=== PATIENT | female | born 1955 | race American Indian/Alaskan Native ===

== ENCOUNTER 2017-06-29 13:23 | Inpatient (IN) | payer MEDICARE ==
[2017-06-29 15:15] LABS: Basophils % (Auto) 0.4 % (0.0-1.8); Eosinophils % (Auto) 5.5 % (0.0-4.3); Hematocrit 34.9 % (30.3-42.9); Hemoglobin 11.4 gm/dl (10.1-14.3); Mean Corpuscular HGB Conc 33 % (30-34); Mean Corpuscular Hemoglobin 29 pg (28-32); Mean Corpuscular Volume 89 fl (79-97); Platelet Count 289 K/mm3 (140-440); Red Blood Count 3.94 M/mm3 (3.65-5.03); Red Cell Distribution Width 14.4 % (13.2-15.2)
[2017-06-29 15:35] LABS: Anion Gap 16 mmol/L; Blood Urea Nitrogen 10 mg/dL (7-17); Calcium 9.6 mg/dL (8.4-10.2); Carbon Dioxide 30 mmol/L (22-30); Chloride 101.7 mmol/L (98-107); Glucose 88 mg/dL (65-100); Potassium 3.9 mmol/L (3.6-5.0); Sodium 144 mmol/L (137-145)
--- NOTE | 2017-06-29 15:43 | Emergency Department Report ---
HPI - General Chief Complaint: Chest Pain Time Seen by Provider: 06/29/17 14:54 - HPI HPI: This is a 62-year-old Afro-Spanish female presents to the emergency department from [facility] by EMS with complaint of left-sided chest pain has been going on since last night. It is nonradiating and she denies any nausea, vomiting, fever or diaphoresis. She has some occasional shortness of breath. She did not take anything for symptoms prior to presentation. Prior to today she did not have a primary care physician and therefore has not had her medications. She has a history of hypertension, coronary artery disease and ID. She was just started on Norvasc and hydralazine today but has not taken his medications yet. She is a former smoker. No recent travel or sick contacts at home. ED Past Medical Hx - Past Medical History Previous Medical History?: Yes Hx Hypertension: Yes (non compliant with meds) Hx Heart Attack/AMI: Yes - Social History Smoking Status: Never Smoker Substance Use Type: None - Medications Home Medications: Home Medications Medication Instructions Recorded Confirmed Last Taken Type Aspirin [Aspirin TAB] 325 mg PO QDAY 06/29/17 06/29/17 Unknown History amLODIPine [Norvasc] 10 mg PO DAILY 06/29/17 06/29/17 Unknown History hydrALAZINE [Apresoline] 25 mg PO BID 06/29/17 06/29/17 Unknown History ED Review of Systems ROS: Stated complaint: CHEST PAIN Other details as noted in HPI Comment: All other systems reviewed and negative Constitutional: denies: chills, fever Eyes: denies: eye pain, eye discharge, vision change ENT: denies: ear pain, throat pain Respiratory: shortness of breath. denies: cough Cardiovascular: chest pain. denies: palpitations Gastrointestinal: denies: abdominal pain, nausea, diarrhea Genitourinary: denies: urgency, dysuria, discharge Musculoskeletal: denies: back pain, joint swelling, arthralgia Skin: denies: rash, lesions Neurological: denies: headache, weakness, paresthesias Physical Exam - Physical Exam Vital Signs: Vital Signs 06/29/17 06/29/17 15:08 15:10 Pulse Rate 69 Respiratory 16 16 Rate Blood Pressure 180/84 [Right] Physical Exam: GENERAL: The patient is well-developed well-nourished. HEENT: Normocephalic. Atraumatic. Extraocular motions are intact. Patient has moist mucous membranes. Pupils equal reactive to light bilaterally. NECK: Supple. Trachea is midline. CHEST/LUNGS: Clear to auscultation. There is no respiratory distress noted. Chest pain is not reproducible to palpation of chest wall. HEART/CARDIOVASCULAR: Regular. There is no tachycardia. There is no gallop rub or murmur. ABDOMEN: Abdomen is soft, nontender. Patient has normal bowel sounds. There is no abdominal distention. SKIN: Skin is warm and dry. NEURO: The patient is awake, alert, and oriented. The patient is cooperative. The patient has no focal neurologic deficits. The patient has normal speech. MUSCULOSKELETAL: There is no tenderness or deformity. There is no limitation range of motion. There is no evidence of acute injury. ED Course Vital Signs 06/29/17 06/29/17 15:08 15:10 Pulse Rate 69 Respiratory 16 16 Rate Blood Pressure 180/84 [Right] ED Medical Decision Making - Lab Data Result diagrams: 06/29/17 14:51 06/29/17 14:51 - EKG Data -: EKG Interpreted by Me EKG shows normal: sinus rhythm, axis (LAD), intervals, QRS complexes (RBBB), ST- T waves Rate: normal - EKG Data When compared to previous EKG there are: previous EKG unavailable Interpretation: other (Sinus, RBBB) - Radiology Data Radiology results: report reviewed, image reviewed interpreted by me: Chest x-ray did not show any acute process. Heart is normal shape and size. No effusions. No pneumothorax. No signs of pneumonia seen. EXAM: CT ANGIO CHEST HISTORY: CP, elevated dimer TECHNIQUE: CTA of chest with IV contrast. Coronal and sagittal and MIP reconstructed images provided. PRIORS: None currently available. FINDINGS: Subpleural nodule right upper lobe series 2:11 measures 5.7 mm. Pleural-based nodule right lower lobe series 295 measures 4.7 mm. Left upper lung nodule series 2:101 measures 4.5 mm. Interstitial opacities with airspace opacities in the apical to basal gradient identified. No distinct consolidation noted. Findings could be related to pulmonary vascular congestion with edema. Differential diagnosis includes cellular interstitial pneumonitis or interstitial and airspace pneumonia which can be seen with atypical pneumonia or viral pneumonia. No pneumothorax. No endobronchial lesion. No significant effusion. Prominent bilateral axillary lymph nodes identified. One of the larger lymph nodes on the right measures 9.9 x 6.1 mm. One of the larger lymph nodes on the left measure 16.5 x 7.9 mm. Prominent right hilar lymph node measures 12.9 mm. No enlarged left hilar lymph nodes identified. No mediastinal mass or adenopathy noted. Images of the esophagus are unremarkable. No thoracic aortic aneurysm or dissection. Mild atherosclerotic disease. Main pulmonary artery is unremarkable. No pulmonary embolus. Heart size is borderline normal. No pericardial effusion. No suspicious osseous lesions on this limited examination of the skeleton. Metastatic disease better evaluated with bone scan. Degenerative changes are present in the spine. IMPRESSION: No pulmonary embolus. No aortic aneurysm. No dissection. Possible bilateral pulmonary nodules. Nodule size T gt; 4-6 mm: Low risk patients - follow-up at 12 months and if no change, no further imaging needed. High risk patients - initial follow-up CT at 6-12 months and then at 18-24 months if no change. Interstitial and airspace opacities in both lungs more notable in both basal regions may represent pulmonary vascular congestion with pulmonary edema, interstitial pneumonitis, or pneumonia. Nonspecific prominent bilateral axillary lymph nodes. Possibly reactive. Prominent right hilar lymph node may also be reactive. - Medical Decision Making 62-year-old female presents with left-sided chest pain since last night. She also presents with elevated blood pressure but has not been on medications for a while. EKG shows a right bundle branch block but no ST elevation ID. First troponin is negative. Elevated but equivocal d-dimer so CT angiography was done. No pulmonary embolism but pulmonary nodules are seen. She has a history of coronary artery disease, ID with elevated blood pressure and has not had a stress test or full cardiac workup recently. For these reasons the patient will be admitted to hospital for further evaluation and treatment. The patient has been presented to the current admitting hospitalist, Dr. Boudreaux, who will either do the history and physical or will pass along the admission to the incoming admitting hospitalist. - Differential Diagnosis ID, PE, costochondritis, pneumonia, CHF Critical Care Time: No Critical care attestation.: If time is entered above; I have spent that time in minutes in the direct care of this critically ill patient, excluding procedure time. ED Disposition Clinical Impression: Pulmonary nodules Chest pain Qualifiers: Chest pain type: unspecified Qualified Code(s): R07.9 - Chest pain, unspecified Hypertension Qualifiers: Hypertension type: essential hypertension Qualified Code(s): I10 - Essential ( primary) hypertension Disposition: 09 OP ADMIT IP TO THIS HOSP Is pt being admited?: Yes Condition: Stable Instructions: Chest Pain (ED), Hypertension (ED) Referrals: PRIMARY CARE, [Primary Care Provider] - 3-5 Days Time of Disposition: 17:40
[2017-06-29] MEDS ORDERED: NACL ONE (15:46)
[2017-06-29 15:53] LABS: Bilirubin,Urine NEG (Negative); Blood,Urine NEG (Negative); Ketones,Urine NEG (Negative); Leukocyte Esterase,Urine NEG (Negative); Nitrite,Urine NEG (Negative); Protein,Urine <15 mg/dL mg/dL (Negative); Urobilinogen,Urine < 2.0 mg/dL (<2.0); WBC,Urine < 1.0 /HPF (0.0-6.0)
--- NOTE | 2017-06-29 16:56 | Admit Criteria Form ---
Admission Criteria Documentation: CHEST PAIN Clinical Indications for Admission to Inpatient Care (Place 'X' for any and all applicable criteria): Admission is indicated for chest pain and ANY ONE of the following(1)(2)(3)(4)(5 ): [ ]I. Angina with acute coronary syndrome (Also use Myocardial Infarction or Angina guideline) [ ]II. Hemodynamic instability [ ]III. Angina needing acute intervention as indicated by ALL of the following( 11)(12): [ ]a) Unstable angina is present as indicated by angina that is ANY ONE of the following: [ ]i) New onset [ ]ii) Nocturnal [ ]iii) Prolonged at rest [ ]iv) Progressive [ ]b) Angina warrants acute intervention as indicated by ANY ONE of the following: [ ]i) Recurrent angina (e.g, not responding as previously to treatment) [ ]ii) Angina at rest or with low-level activities despite initial medical therapy [ ]iii) New or presumably new ST-segment depression on ECG [ ]iv) Signs or symptoms of heart failure (eg, dyspnea, pulmonary edema) [ ]v) New or worsening mitral regurgitation [ ]vi) Hemodynamic instability [ ]vii) Dangerous arrhythmia (eg, sustained ventricular tachycardia) [ ]viii) History of percutaneous coronary intervention within 6 months [ ]ix) History of coronary artery bypass graft surgery [ ]x) WESLEY risk score of 2 or greater[A] [ ]xi) History of Diabetes(14) [ ]xii) High-risk cardiac ischemia findings on noninvasive testing (e.g, echocardiogram, treadmill testing, nuclear scan) [ ]xiii) Chronic renal insufficiency (ie, estimated GFR less than 60 mL/min/1.732m) [ ]xiv) Left ventricular ejection fraction less than 40% [ ]IV. Evidence of DE (eg, cardiac biomarkers positive, ST-segment elevation on ECG) also use Myocardial Infarction Criteria Form. [ ]V. Pulmonary edema [ ]. Respiratory distress [ ]VII. Chest pain indicative of serious diagnosis other than coronary artery disease (eg, aortic dissection) [ ]VIII. Contraindications and/or Inappropriate clinical situations for Observational Care in patients with Chest Pain, when ANY ONE of the following is required: [ ]a) Patient with risk factor for pulmonary embolism, acute coronary syndrome and myocardial infarction (18) [ ]b) Patient with Pulmonary embolism require an average LOS of 4.3 days, therefore emergency department observation management is inappropriate 18,23 [ ]c) Painful condition/s in the elderly, have the highest rate of recidivism after emergency department observation management (10.8%) 20,21,22 [ ]d) Elevated cardiac biomarker requires intensive and exhaustive care (19) [ X]IX. General contraindications and/or Inappropriate clinical situations for Observational Care in patients with Chest Pain, when ANY ONE of the following is required: [ X]a) Prediction of prolongation of LOS based on ANY ONE of the following may be considered as a contraindication for observational care 2, 3, 4, 5, 6, 7, 8, 9, 10, 11 [ ]i) Age > 65 yrs. [X ]ii) Patient arriving by ambulance [ ]iii) Patient with high acuity [ ]iv) Patient requiring vital sign monitoring [ ]v) Patient on IV medication [X ]b) Systolic blood pressures 180mmHg 3,12 [ ]c) Patient with altered mental status including delirium and other alteration of consciousness, (3) [ ]d) Patient whose discharge disposition will be to a nursing home home or rehabilitation home should not be managed in Emergency Department Observation Unit. CMS rule requires 3 days hospital stay before such placement. 3,13 [ ]e) Patient with failure to thrive due to broad array of etiologies 3,16,17 [ ]f) Inability to ambulate 3,14 Extended stay beyond goal length of stay may be needed for (1)(28): [ ]a) Specific condition diagnosed after evaluation (eg, pulmonary embolism, aortic dissection) [ ]b) Unstable angina [ ]c) Continued suspicion of acute coronary syndrome with inability to complete needed cardiac evaluation (eg, patient clinically unable to undergo stress testing) [ ]d) Myocardial infarction (Contents from ANGINA and CHEST PAIN clinical indications for admission to inpatient care have been integrated in this form) The original [email or web address] content created by [email or web address] has been revised. The portions of the content which have been revised are identified through the use of italic text or in bold, and [employer] [facility] [employer] has neither reviewed nor approved the modified material. All other unmodified content is copyright [email or web address]. Please see references footnoted in the original [employer] [facility] [employer] edition 2016 Admission Criteria Met: Yes
--- NOTE | 2017-06-29 17:10 | Cat Scan Report ---
FINAL REPORT EXAM: CT ANGIO CHEST HISTORY: CP, elevated dimer TECHNIQUE: CTA of chest with IV contrast. Coronal and sagittal and MIP reconstructed images provided. PRIORS: None currently available. FINDINGS: Subpleural nodule right upper lobe series 2:11 measures 5.7 mm. Pleural-based nodule right lower lobe series 295 measures 4.7 mm. Left upper lung nodule series 2:101 measures 4.5 mm. Interstitial opacities with airspace opacities in the apical to basal gradient identified. No distinct consolidation noted. Findings could be related to pulmonary vascular congestion with edema. Differential diagnosis includes cellular interstitial pneumonitis or interstitial and airspace pneumonia which can be seen with atypical pneumonia or viral pneumonia. No pneumothorax. No endobronchial lesion. No significant effusion. Prominent bilateral axillary lymph nodes identified. One of the larger lymph nodes on the right measures 9.9 x 6.1 mm. One of the larger lymph nodes on the left measure 16.5 x 7.9 mm. Prominent right hilar lymph node measures 12.9 mm. No enlarged left hilar lymph nodes identified. No mediastinal mass or adenopathy noted. Images of the esophagus are unremarkable. No thoracic aortic aneurysm or dissection. Mild atherosclerotic disease. Main pulmonary artery is unremarkable. No pulmonary embolus. Heart size is borderline normal. No pericardial effusion. No suspicious osseous lesions on this limited examination of the skeleton. Metastatic disease better evaluated with bone scan. Degenerative changes are present in the spine. IMPRESSION: No pulmonary embolus. No aortic aneurysm. No dissection. Possible bilateral pulmonary nodules. Nodule size \T\gt; 4-6 mm: Low risk patients - follow-up at 12 months and if no change, no further imaging needed. High risk patients - initial follow-up CT at 6-12 months and then at 18-24 months if no change. Interstitial and airspace opacities in both lungs more notable in both basal regions may represent pulmonary vascular congestion with pulmonary edema, interstitial pneumonitis, or pneumonia. Nonspecific prominent bilateral axillary lymph nodes. Possibly reactive. Prominent right hilar lymph node may also be reactive.
[2017-06-29] MEDS ORDERED: BABY ASPIRIN PO ONE (17:32)
[2017-06-29] MEDS ORDERED: NORMODYNE IV ONE (17:33)
[2017-06-29] MEDS ORDERED: BABY ASPIRIN PO STA (20:19)
[2017-06-29] MEDS ORDERED: MORPHINE IV PRN (20:19)
[2017-06-29] MEDS ORDERED: SODIUM CHLORIDE FLUSH SYRINGE 10 ML IV PRN (20:19)
--- NOTE | 2017-06-29 20:39 | History and Physical Report ---
History of Present Illness Date of examination: 06/29/17 Date of admission: 06/29/17 Chief complaint: chest pain, HTN, Pulm Nodules History of present illness: Patient is a 62-year-old lady who has a history of carotid disease and acute infection woke from sleep this morning with a dull left-sided chest pain. Moderate to severe in intensity. Intermittent. Nonradiating, associated with shortness of breath and diaphoresis. Continue emergency department where a chest x-ray was unremarkable. CT scan of the chest showed multiple pulmonary nodules for which a follow-up CT scan was recommended in 6 months and 12 months. Blood pressure was found to be elevated to 180s emergency department. Initial set of cardiac enzymes were normal. Patient was commenced on oxygen nitroglycerin aspirin. Patient denies any orthopnea proximal nocturnal dyspnea. No fever no nausea no vomiting. Admission was therefore requested Past History Past Medical History: hypertension Past Surgical History: No surgical history Social history: denies: smoking, alcohol abuse, prescription drug abuse Family history: other (breast cancer in her mother) Medications and Allergies Allergies Allergy/AdvReac Type Severity Reaction Status Date / Time No Known Allergies Allergy Unverified 06/29/17 14:12 Home Medications Medication Instructions Recorded Confirmed Last Taken Type Aspirin [Aspirin TAB] 325 mg PO QDAY 06/29/17 06/29/17 Unknown History amLODIPine [Norvasc] 10 mg PO DAILY 06/29/17 06/29/17 Unknown History hydrALAZINE [Apresoline] 25 mg PO BID 06/29/17 06/29/17 Unknown History Active Meds: Active Medications Amlodipine Besylate (Norvasc) 10 mg PO DAILY [facility] Aspirin (Aspirin) 325 mg PO QDAY [facility] Aspirin (Baby Aspirin) 324 mg PO QDAC STA Stop: 06/29/17 20:20 Atorvastatin Calcium (Lipitor) 20 mg PO QHS [facility] Hydralazine HCl (Apresoline) 25 mg PO BID [facility] Morphine Sulfate (Morphine) 2 mg IV Q4H PRN PRN Reason: Chest Pain Nitroglycerin (Nitro-Bid 2%) 1 inch TP BIDNTG CANDELARIO PRN Reason: Protocol Sodium Chloride (Sodium Chloride Flush Syringe 10 Ml) 10 ml IV PRN PRN PRN Reason: LINE FLUSH Review of systems Constitutional: Well Nouridhed and Well developed. Head: NC/ AT Eyes: Denies any visual impairments. No discharge from the eyes Nose: Denies any rhinorrhea or epistaxis Throats: Denies any post nasal drainage. Ears: Denies any hearing deficits Cardiovascular system: Has chest pain, shortness of breath, no orthopnea, paroxysmal nocturnal dyspnea, or palpitation. Respiratory system: Denies any cough, difficulty breathing, wheezing, pleuritic chest pain, Gastrointestinal system: Denies any abdominal pain, nausea vomiting, hematemesis or melena. Neurological system: Denies any headache, slurred speech, facial droop, lateralizing weakness Genitalia system: Denies any dysuria, urinary frequency or urgency, urethral discharge Skin: No rashes, hyperpigmented spots. Hematological: Denies any cervical tenderness hemorrhages or petechia. Immunological: Denies any multiple septic spots, Lymphatic: Denies any generalized lymphadenopathy. Endocrine: Denies any polyuria, polydipsia, polyphagia. No heat or cold intolerance. Musculoskeletal system: No joint pain or swelling. Psych: No visual, tactile, auditory or hallucination Exam - Constitutional Vitals: Temp Pulse Resp BP Pulse Ox 98.2 F 86 19 189/93 98 06/29/17 17:40 06/29/17 19:05 06/29/17 19:05 06/29/17 19:05 06/29/17 19:05 General appearance: Present: no acute distress, well-nourished - EENT Eyes: Present: PERRL - Neck Neck: Present: supple, normal ROM - Respiratory Respiratory effort: normal Respiratory: bilateral: CTA - Cardiovascular Heart Sounds: Present: S1 & S2. Absent: rub, click - Extremities Extremities: pulses symmetrical, No edema Peripheral Pulses: within normal limits - Abdominal General gastrointestinal: Present: soft, non-tender, non-distended, normal bowel sounds - Integumentary Integumentary: Present: clear, warm, dry - Musculoskeletal Musculoskeletal: gait normal, strength equal bilaterally - Psychiatric Psychiatric: appropriate mood/affect, intact judgment & insight - Neurologic Neurologic: CNII-XII intact, moves all extremities Results - Labs CBC & Chem 7: 06/29/17 14:51 06/29/17 14:51 Labs: Abnormal lab results 06/29/17 06/29/17 06/29/17 Range/Units 14:51 14:51 15:10 WBC 4.0 L (4.5-11.0) K/mm3 [place] % (Auto) 8.2 H (0.0-7.3) % Eos % (Auto) 5.5 H (0.0-4.3) % Lymph # 1.1 L (1.2-5.4) K/mm3 D-Dimer 485.25 H (0-234) ng/mlDDU Creatinine 0.5 L (0.7-1.2) mg/dL Assessment and Plan - Chest pain- atypical - Hypertension - Pulmonary nodule - Elevated d-dimer Admit patient to telemetry Serial cardiac enzymes, oxygen nitroglycerin aspirin and morphine, metoprolol. Stress thallium if second set of cardiac enzymes are normal Optimize blood pressure control Follow pulmonary nodules with CT scan on outpatient basis with patient's primary care physician as recommended by radiologist Pulmonary consult for pulmonary nodules DVT prophylaxis with Lovenox and GI with Pepcid
[2017-06-29 21:00] LABS: INR 0.95 (0.87-1.13)
[2017-06-29] MEDS ORDERED: NORVASC ONE (21:51)
[2017-06-29] MEDS: NORVASC PO SCH (21:54)
[2017-06-29] MEDS: APRESOLINE PO SCH (22:34)
[2017-06-30] MEDS ORDERED: NITRO-BID 2% TP SCH (06:00)
--- NOTE | 2017-06-30 08:30 | XRay Report ---
PORTABLE CHEST INDICATION: Chest pain. COMPARISON: None similar at this institution. FINDINGS: Portable, frontal chest radiograph demonstrates limited inspiration with slightly crowded lung markings and mild exaggerated cardiomediastinal silhouette. No pleural effusions or CHF. EKG leads. Mild bony degenerative changes. CONCLUSION: No acute disease. Thank you for the opportunity to participate in this patient's care.
[2017-06-30] MEDS: NORVASC PO SCH (09:06)
[2017-06-30] MEDS: APRESOLINE PO SCH (09:06)
[2017-06-30] MEDS ORDERED: ASPIRIN PO SCH (10:00)
[2017-06-30] MEDS ORDERED: LEXISCAN IV ONE ×2 (10:44→10:46)
--- NOTE | 2017-06-30 11:59 | Consultation ---
History of Present Illness Consult date: 06/30/17 Requesting physician: DAPHNE BUTCHER Consult reason: chest pain History of present illness: The patient is a 62-year-old female who has a past medical history significant for HTN, CAD s/p ? [place] 5 years ago in [place], arthritis. She is previously unknown to our practice. She presented with c/o chest pain which began yesterday evening. She had just finished doing some chores around the house when she noted the onset of her pain. She describes her pain as a nonexertional, nonradiating, left-sided stabbing pain which was constant throughout the night and spontaneously resolved this AM. She denies any SOB, palpitations, n/v, diaphoresis, dizziness, or syncope. She also c/o right arm numbness and tingling , but states this has been ongoing for the past several weeks. She underwent lexiscan MPI stress test this AM. Past History Past Medical History: hypertension Past Surgical History: No surgical history Social history: denies: smoking, alcohol abuse, prescription drug abuse Family history: other (breast cancer in her mother) Medications and Allergies Allergies Allergy/AdvReac Type Severity Reaction Status Date / Time No Known Allergies Allergy Unverified 06/29/17 14:12 Home Medications Medication Instructions Recorded Confirmed Last Taken Type Aspirin [Aspirin TAB] 325 mg PO QDAY 06/29/17 06/29/17 Unknown History amLODIPine [Norvasc] 10 mg PO DAILY 06/29/17 06/29/17 Unknown History hydrALAZINE [Apresoline] 25 mg PO BID 06/29/17 06/29/17 Unknown History Active Meds: Active Medications Amlodipine Besylate (Norvasc) 10 mg PO DAILY [facility] Last Admin: 06/30/17 09:06 Dose: 10 mg Aspirin (Aspirin) 325 mg PO QDAY [facility] Last Admin: 06/30/17 09:06 Dose: 325 mg Atorvastatin Calcium (Lipitor) 20 mg PO QHS [facility] Last Admin: 06/29/17 22:34 Dose: 20 mg Hydralazine HCl (Apresoline) 25 mg PO BID [facility] Last Admin: 06/30/17 09:06 Dose: 25 mg Morphine Sulfate (Morphine) 2 mg IV Q4H PRN PRN Reason: Chest Pain Nitroglycerin (Nitro-Bid 2%) 1 inch TP BIDNTG CANDELARIO PRN Reason: Protocol Last Admin: 06/30/17 06:38 Dose: Not Given Sodium Chloride (Sodium Chloride Flush Syringe 10 Ml) 10 ml IV PRN PRN PRN Reason: LINE FLUSH Review of Systems Constitutional: no weight loss, no weight gain, no fever, no chills, no night sweats Ears, nose, mouth and throat: no ear pain, no nose pain, no sinus pressure, no sinus pain Cardiovascular: chest pain, high blood pressure, no orthopnea, no palpitations, no rapid/irregular heart beat, no edema, no syncope, no lightheadedness, no shortness of breath, no dyspnea on exertion, no paroxysmal nocturnal dyspnea, no leg edema, no decreased exercise tolerance Respiratory: no cough, no shortness of breath, no dyspnea on exertion, no congestion, no wheezing, no pain on inspiration Gastrointestinal: no abdominal pain, no nausea, no vomiting, no diarrhea, no constipation, no change in bowel habits Musculoskeletal: arm numbness/tingling (right arm ), no neck stiffness, no neck pain, no shooting arm pain, no low back pain, no shooting leg pain, no leg numbness/tingling, no redness of joints Neurological: no head injury, no syncope Psychiatric: no anxiety Endocrine: no cold intolerance, no heat intolerance Hematologic/Lymphatic: no easy bruising, no easy bleeding Allergic/Immunologic: no urticaria, no wheezing, no persistent infections Physical Examination Vital Signs Resp 16 06/29/17 15:08 General appearance: no acute distress HEENT: Positive: PERRL, Normocephaly, Mucus Membranes Moist Neck: Positive: neck supple, trachea midline Cardiac: Positive: Reg Rate and Rhythm, S1/S2, Systolic Murmur Lungs: Positive: Normal Exam, clear to auscultation, Normal Breath Sounds Neuro: Positive: Grossly Intact, Cranial Nerve 2-12 Intact Abdomen: Positive: Unremarkable, Soft, Active Bowel Sounds. Negative: Tender Skin: Positive: Clear. Negative: Rash, Wound Musculoskeletal: No Fluid Collection, No Pain, Normal Range of Motion Extremities: Absent: edema Results 06/29/17 14:51 06/29/17 14:51 - Imaging and Cardiology EKG: image reviewed EKG interpretations - Telemetry EKG Rhythm: Sinus Rhythm - EKG Sinus rhythms and dysrhythmias: sinus rhythm AV and intraventricular conduction: right bundle branch block Assessment and Plan Assessment: Chest pain, atypical - currently resolved; ECG with NAF; Yissel negative for AMI. H/o CAD s/p ? [place] 5 [place] ago [place] per pt report - no prior PCI HTN OA Plan: s/p lexiscan MPI stress test this AM which was negative for ischemia. Suspect pain is GI pain. Obtain echo. Cont present cardiac management. Assessment and plan reviewed with pt and pt's family at bedside. The patient has been seen in conjunction with Dr. Lorenzana who agrees with the assessment and plan of care.
[2017-06-30 13:12] VITALS: BP 146/81
--- NOTE | 2017-06-30 13:28 | Discharge Summary ---
Providers - Providers Date of Admission: 06/29/17 20:18 Date of discharge: 06/30/17 Attending physician: YUE PARMAR MD 06/29/17 Consult to Cardiac Rehabilitation [CONS] Routine Reason For Exam: Phase I 06/29/17 20:19 Consult to Cardiology [CONS] Routine Consulting Provider: MARY OVALLES Reason For Exam: chest pain Primary care physician: [employer] Hospitalization Reason for admission: Atypical chest pain Condition: Stable Hospital course: 62-year-old female who has a past medical history significant for HTN, CAD s/p ? [place] 5 years ago in [place], arthritis presented with c/o chest pain which began yesterday evening. She had just finished doing some chores around the house when she noted the onset of her pain. She describes her pain as a nonexertional , nonradiating, left-sided stabbing pain which was constant throughout the night and spontaneously resolved this AM. She denies any SOB, palpitations, n/v , diaphoresis, dizziness, or syncope. She also c/o right arm numbness and tingling, but states this has been ongoing for the past several weeks. Patient was admitted to the floor and cardiac enzymes were negative, EKG no ischemia, Lexiscan stress test negative for ischemia. CTA showed multiple pulmonary nodules which need follow up with CT scan in 6 months. I have explained the finding with her and advised to discuss with PCP about her CT result and patient verbalized she understood. I also scheduled to be followed with pulmonary with in 6 months and discussed with the patient. patient was hemodynamically stable at the time of discharge and patient was given a script for the appropriate medications at the time of discharge. Patient's questions and concerns were addressed at bedside. Disposition: - TO HOME OR SELFCARE Time spent for discharge: 31 minutes - Discharge Diagnoses (1) Chest pain Status: Acute Qualifiers: Chest pain type: unspecified Ischemic chest pain type: I Qualified Code(s ): R07.9 - Chest pain, unspecified (2) Hypertension Status: Acute Qualifiers: Hypertension type: essential hypertension Qualified Code(s): I10 - Essential (primary) hypertension (3) Pulmonary nodules Status: Acute Core Measure Documentation - Palliative Care Palliative Care/ Comfort Measures: Palliative Care/Comfort Measures - Core Measures Any of the following diagnoses?: none Exam - Constitutional Vitals: Temp Pulse Resp BP Pulse Ox 98.3 F 81 16 146/81 98 06/30/17 13:11 06/30/17 13:11 06/30/17 13:11 06/30/17 13:11 06/30/17 13:11 General appearance: Present: no acute distress, well-nourished - EENT Eyes: Present: PERRL ENT: clear oral mucosa, dentition normal - Neck Neck: Present: supple, normal ROM. Absent: cervical LAD, carotid bruits - Respiratory Respiratory effort: normal Respiratory: bilateral: CTA - Cardiovascular Rhythm: regular Heart Sounds: Present: S1 & S2. Absent: gallop, rub, click - Extremities Extremities: no ischemia, No edema - Abdominal General gastrointestinal: Present: soft, non-tender, non-distended, normal bowel sounds Female genitourinary: Present: deferred - Rectal Rectal Exam: deferred - Musculoskeletal Musculoskeletal: strength equal bilaterally - Psychiatric Psychiatric: appropriate mood/affect - Neurologic Neurologic: CNII-XII intact, moves all extremities - Allied Health Allied health notes reviewed: nursing, case management Plan Activity: no restrictions Weight Bearing Status: Full Weight Bearing Diet: low cholesterol, low salt Follow up with: SIOBHAN ROSENTHAL MD [Staff Physician] - 6 Weeks (Pulmonary nodules on CT ) PRIMARY CAREMD [Primary Care Provider] - 7 Days (patient has pulmonary nodules and need CT in 6 months) Prescriptions: AtorvaSTATin [Lipitor] 20 mg PO QHS #30 tablet amLODIPine [Norvasc] 10 mg PO DAILY #30 tablet Aspirin [Aspirin TAB] 325 mg PO QDAY #30 tablet hydrALAZINE [Apresoline TAB] 25 mg PO BID #30 tablet oxyCODONE /ACETAMINOPHEN [Percocet 5/325] 1 tab PO Q6HR PRN #12 tablet PRN Reason: Pain
--- NOTE | 2017-07-01 00:12 | Treadmill Report ---
NUCLEAR PERFUSION STUDY REASON FOR STUDY: Chest pain. READING PHYSICIAN: Ej Lorenzana M.D. IMAGING PROTOCOL: The patient received 10 mCi of Technetium 99m Tetrofosmin for resting image and 28 mCi of Technetium 99m Tetrofosmin for stress imaging. The imaging for the whole procedure was completed 30-90 minutes following the initial injection of Technetium 99m tetrofosmin. The SPECT imaging in the 180 degree arc was performed in the right anterior oblique projection. Computerized reconstruction of the images was performed for analysis. IMAGING RESULTS: Normal cavity size from stress to rest. Normal distribution of radionuclide in the anterior, inferior, septal, and apical regions. Gated SPECT, EF greater than 65% with no wall motion abnormality. The patient infused Lexiscan with no EKG changes. SUMMARY: 1. Negative Lexiscan EKG. 2. Normal rest and stress myocardial perfusion scan. No significant stress ischemia. No wall motion abnormality. Gated SPECT, EF greater than 65%. JOB# [id number] GUERRERO/QUINTEN
--- NOTE | 2017-07-05 09:53 | Query- Chest Pain ---
Elana Sullivan____Dahlia Date:__07/05/2017 Stain Remover/CDS:___ErasomitaReynaldoZaria Phone#:___[phone] Exercise your independent professional judgment when responding to query. Questions asked do not imply a particular answer is desired or expected. We greatly appreciate your clarification on this issue. Clinical Documentation States: 62 Year old female was admitted on 06/29/2017. The Discharge summary states "- Discharge Diagnoses (1) Chest pain Status: Acute Qualifiers: Chest pain type: unspecified Ischemic chest pain type: I Qualified Code(s ): R07.9 - Chest pain, unspecified." The Cardiology Consult note states "She presented with c/o chest pain which began yesterday evening. She had just finished doing some chores around the house when she noted the onset of her pain. She describes her pain as a nonexertional, nonradiating, left-sided stabbing pain which was constant throughout the night and spontaneously resolved this AM." Please document the etiology of Chest Pain: [ ] Myocardial Infarction [ ] Pneumonia [ ] Mediastinitis [x ] Costochondritis [ ] Pulmonary Embolism [ ] Coronary Artery Disease [ ] GERD [ ] Other: [ ] Comment/Explanation: Present on Admission: [ x] Yes (Y) [ ] Clinically undeterminable (W) [ ] No(N) Please document response in your Progress Notes and/or Discharge Summary and indicate if the condition was present on admission. RILEY
== END 2017-06-30 15:00 | disposition home or self-care (01) | DRG 206 ==
LOC: ED 13:23 → 4A 20:18
PROVIDERS: ADMIT Family Medicine; ATTEND Internal Medicine
DX: M94.0 Chondrocostal junction syndrome [Tietze] (principal); I10 Essential (primary) hypertension; R91.8 Other nonspecific abnormal finding of lung field; I25.10 Atherosclerotic heart disease of native coronary artery without angina pectoris; M19.90 Unspecified osteoarthritis, unspecified site; I25.2 Old myocardial infarction
CPT/HCPCS: 36415; 71010; 71275; 78452; 80048; 81001; 83880; 84484; 85025; 85379; 85610; 93005; 93010; 93017; A9270-GY; A9502; J2785; Q9967